=== PATIENT | female | born 1945 | race African-American/Black ===

== ENCOUNTER 2023-01-31 18:09 | Emergency (ER) | payer OTHER ==
[~2023-01-31] VITALS: Ht 154.9 cm; Wt 68.0 kg
[2023-01-31 18:45] LABS: BASO % 0.1 % (0.0-1.0); EOS # 0.1 10*3/uL (0.0-0.4); EOS % 0.9 % (1.0-4.0); HEMATOCRIT 40.6 % (37.0-47.0); LYMPH # 3.4 10*3/uL (1.3-4.4); LYMPH % 49.6 % (27.0-41.0); MEAN CELL VOLUME 95.8 fl (81.0-99.0); MEAN CORPUSCULAR HGB 32.1 pg (27.0-31.0); MEAN CORPUSCULAR HGB CONC 33.5 g/dl (33.0-37.0); MEAN PLATELET VOLUME 9.5 fl (9.6-12.3); MONO # 0.5 10*3/uL (0.1-1.0); MONO % 7.9 % (3.0-9.0); NEUT # 2.8 10*3/uL (2.3-7.9); NEUT % 41.4 % (47.0-73.0); PLATELET COUNT AUTOMATED 200 10*3/uL (130-400); RED BLOOD COUNT 4.24 10*6/uL (4.10-5.10); RED CELL DISTRI WIDTH 13.2 % (0-14.5); WHITE BLOOD COUNT 6.8 10*3/uL (4.8-10.8)
[2023-01-31 18:56] LABS: INTERNATIONAL NORM RATIO 1.1 (2.0-3.5)
[2023-01-31 19:07] LABS: ALKALINE PHOSPHATASE 85 U/L (46-116); BUN 14 mg/dl (9-23); CHLORIDE 111 mmol/L (98-107); LIPASE 38 U/L (12-53); POTASSIUM 3.3 mmol/L (3.4-5.1); SGPT/ALT < 7 U/L (10-49); TOTAL PROTEIN 6.8 gm/dL (6.0-8.0)
== END 2023-01-31 23:00 | disposition home or self-care (01) ==
LOC: ED 18:09
PROVIDERS: Emergency Medicine
DX: S16.1XXA Strain of muscle, fascia and tendon at neck level, initial encounter (principal); V89.2XXA Person injured in unspecified motor-vehicle accident, traffic, initial encounter; Y93.89 Activity, other specified; Y92.89 Other specified places as the place of occurrence of the external cause; Y99.8 Other external cause status

== ENCOUNTER → 2024-01-09 | Outpatient (CLI) | payer MEDICARE, BC | END | disposition home or self-care (01) | LOC: US 13:54 | PROVIDERS: ATTEND Family Medicine | DX: N28.89 Other specified disorders of kidney and ureter (principal); N32.89 Other specified disorders of bladder; N18.32 Chronic kidney disease, stage 3b; R32 Unspecified urinary incontinence ==

== ENCOUNTER → 2024-03-07 | Outpatient (CLI) | payer MEDICARE, BC | END | disposition home or self-care (01) | LOC: US 01:12 | PROVIDERS: ATTEND Internal Medicine Nephrology | DX: N18.31 Chronic kidney disease, stage 3a (principal); M54.50 Low back pain, unspecified ==

== ENCOUNTER 2024-06-27 17:13 | Emergency (ER) | payer MEDICARE, BC ==
[~2024-06-27] VITALS: Ht 154.9 cm; Wt 64.4 kg
[2024-06-27] MEDS ORDERED: NIFEDIPINE60 MG PO (17:20)
[2024-06-27] MEDS ORDERED: ENOXAPARIN100 MG/1 M SQ (17:20)
[2024-06-27] MEDS ORDERED: HYDROCHLOROTHIA25 M1 PO (17:20)
[2024-06-27] MEDS ORDERED: MONTELUKAST SOD10 MG PO (17:20)
[2024-06-27] MEDS ORDERED: LOSARTAN POTAS100 M1 PO (17:21)
[2024-06-27 17:52] LABS: BASO % 0.4 % (0.0-1.0); EOS # 0.1 10*3/uL (0.0-0.4); EOS % 1.3 % (1.0-4.0); LYMPH # 2.9 10*3/uL (1.3-4.4); LYMPH % 31.5 % (27.0-41.0); MEAN CELL VOLUME 98.1 fl (81.0-99.0); MEAN CORPUSCULAR HGB 32.5 pg (27.0-31.0); MEAN CORPUSCULAR HGB CONC 33.1 g/dl (33.0-37.0); MEAN PLATELET VOLUME 9.6 fl (9.6-12.3); MONO # 0.7 10*3/uL (0.1-1.0); NEUT # 5.5 10*3/uL (2.3-7.9); NEUT % 59.6 % (47.0-73.0); PLATELET COUNT AUTOMATED 221 10*3/uL (130-400); RED BLOOD COUNT 4.28 10*6/uL (4.10-5.10); RED CELL DISTRI WIDTH 12.9 % (0-14.5); WHITE BLOOD COUNT 9.2 10*3/uL (4.8-10.8)
[2024-06-27 18:03] LABS: ACT PARTIAL THROMBO TIME 24.5 SECONDS (20.0-32.1)
[2024-06-27 18:16] LABS: ALKALINE PHOSPHATASE 91 U/L (46-116); BUN 18 mg/dl (9-23); CHLORIDE 102 mmol/L (98-107); LIPASE 32 U/L (12-53); POTASSIUM 4.4 mmol/L (3.4-5.1); TOTAL PROTEIN 7.5 gm/dL (6.0-8.0)
[2024-06-27 18:21] LABS: SGPT/ALT < 7 U/L (5-49)
[2024-06-27] MEDS ORDERED: SODIUM CHLORIDE 0.9% 1,000 ML IV ONE (18:30)
== END 2024-06-27 20:56 | disposition home or self-care (01) ==
LOC: ED 17:13
PROVIDERS: Internal Medicine
DX: R42 Dizziness and giddiness (principal); R55 Syncope and collapse; E87.20 Acidosis, unspecified; I12.9 Hypertensive chronic kidney disease with stage 1 through stage 4 chronic kidney disease, or unspecified chronic kidney disease; N18.31 Chronic kidney disease, stage 3a; Z88.0 Allergy status to penicillin

== ENCOUNTER → 2025-02-20 | Outpatient (CLI) | payer MEDICARE, BC ==
[~2025-02-20] MED LIST: ENOXAPARIN100 MG/1 M SQ; HYDROCHLOROTHIA25 M1 PO; LOSARTAN POTAS100 M1 PO; MONTELUKAST SOD10 MG PO; NIFEDIPINE60 MG PO
== END | disposition home or self-care (01) ==
LOC: RAD 15:16
PROVIDERS: ATTEND Family Medicine
DX: M25.512 Pain in left shoulder (principal)